=== PATIENT | male | born 1985 | race Caucasian/White ===

== ENCOUNTER 2020-03-03 07:21 | Emergency (ER) | payer SELFPAY ==
[2020-03-03 07:23] VITALS: BP 114/81; PULSE 95; RESP 16; TEMP 36.6; O2SAT 99; BMI 25.8
--- NOTE | 2020-03-03 07:26 | CT_ITS ---
WS: [id number] CT CERVICAL TRAUMA TECHNIQUE: Noncontrast CT of the cervical spine with coronal and sagittal reformatted images. CLINICAL INFORMATION: hanging attempt COMPARISON: None. DLP: 678.[address] scans at [facility] use at least one of these dose optimization techniques: automat ed exposure control; mA and/or kV adjustment per patient size (includes targeted exams where dose is matched to clinical indication); or iterative reconstruction. FINDINGS: Straightening of the normal cervical lordosis. Normal craniocervical junction. Normal C1-C2 articulat ion. Dens is normal in appearance. Normal occipital condyles. No high-grade spinal canal narrowing. N ormal C1 ring. No evidence of acute fracture or dislocation. Osteophytic ridging at C5-C6 with mild c entral canal stenosis. Normal prevertebral soft tissues. Mastoids air cells are well aerated. CT/CT cervical spin wo con* [id number] IMPRESSION: No evidence of acute fracture or dislocation.
--- NOTE | 2020-03-03 07:26 | CT_ITS ---
WS: [id number] CT HEAD TECHNIQUE: Noncontrast CT of the head obtained from the skullbase to the vertex. CLINICAL INFORMATION: seizure COMPARISON: None. DLP: 1190.[address] scans at [facility] use at least one of these dose optimization techniques: automat ed exposure control; mA and/or kV adjustment per patient size (includes targeted exams where dose is matched to clinical indication); or iterative reconstruction. FINDINGS: No evidence of intracranial hemorrhage or mass effect. Ventricular system and basal cisterns are byoce nt. No extra-axial fluid collections. No evidence of mass or mass effect. Normal ramos-white different iation. Paranasal sinuses and mastoid air cells are well aerated. .Normal visualized soft tissues. CT/CT head wo con* [id number] IMPRESSION: 1. No evidence of intracranial hemorrhage or mass effect. 2. No acute intracranial findings.
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
[2020-03-03] MEDS: LORazepam 2 mg Tablet PO (07:33)
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
--- NOTE | 2020-03-03 07:53 | PC.NURSE ---
Pt to CT scan at this time via stretcher. Pt accompanied by [employer] field technician and 1:1 sitter.
--- NOTE | 2020-03-03 08:06 | PC.NURSE ---
Pt returned to room at this time via stretcher by [email or web address]. 1:1 sitter present at this time.
[2020-03-03 08:19] LABS: Basophils % 0.2 %; Eosinophils % 0.3 %; Hematocrit 44.9 % (42.0-52.0); Hemoglobin 14.5 g/dL (11.7-16.6); Lymphocytes % 16.5 %; Mean Corpuscular HGB Conc 32.3 g/dL (30.0-36.0); Mean Corpuscular Hemoglobin 29.5 pg (28.0-34.0); Mean Corpuscular Volume 91.4 fL (80-94); Mean Platelet Volume 12.3 fL (7.4-10.4); Monocytes # 0.4 10^3/uL (0.2-0.9); Monocytes % 3.7 %; Neutrophils # 9.42 10^3/uL (1.8-7.7); Neutrophils % 78.9 %; Nucleated Red Blood Cells % 0 %; Platelet Count 230 10^3/cmm (130-400); Red Blood Count 4.91 10^6/uL (4.1-5.3); Red Cell Distribution Width 12.7 % (12.1-15.1); White Blood Count 11.9 10^3/uL (4.0-10.0)
[2020-03-03 08:41] LABS: Alanine Aminotransferase 31 U/L (0-41); Alkaline Phosphatase 71 IU/L (40-130); Anion Gap 13.7 (5-19); Aspartate Amino Transferase 30 U/L (0-40); Blood Urea Nitrogen 14 mg/dL (6-20); Calcium 10.3 mg/dL (8.5-10.5); Carbon Dioxide 27 mmol/L (22-29); Chloride 104 mmol/L (98-107); Globulin 3.1 g/dL (1.3-4.6); Glomerular Filtration Rate 76.2 mL/min (90-130); Glucose 102 mg/dL (65-115); Osmolality Calculated 288 mOsm/kg (285-295); Potassium 3.7 mmol/L (3.5-5.1); Sodium 141 mmol/L (136-145); Total Bilirubin 0.6 mg/dL (0.15-1.2); Total Protein 8.1 g/dL (6.6-8.7)
[2020-03-03 08:45] LABS: Acetaminophen < 5.0 ug/mL (10-30); Alcohol Level < 10 mg/dL (0-10); Salicylate < 0.3 mg/dL (3-10)
[2020-03-03 08:51] VITALS: BP 100/73; PULSE 91; RESP 20; TEMP 36.9; O2SAT 99
[2020-03-03 08:58] LABS: Amphetamines Screen Urine Positive (Negative); Barbiturates Screen Urine Negative (Negative); Benzodiazepines Screen Urine Negative (Negative); Cocaine Screen Urine Negative (Negative); Opiate Screen Urine Negative (Negative); PCP Screen Urine Negative (Negative); THC Screen Urine Positive (Negative)
[2020-03-03] MEDS: nicotine 21 mg Patch 1 PATCH TRANSDERMA (09:14)
[2020-03-03 10:06] VITALS: BP 120/72; PULSE 72; RESP 20; TEMP 36.9; O2SAT 98
[2020-03-03 10:30] VITALS: BP 120/72; PULSE 72; RESP 20; TEMP 36.9; O2SAT 98
--- NOTE | 2020-03-03 11:02 | PC.NURSE ---
REPORT RECIEVED FROM [facility].
== END 2020-03-03 11:20 | disposition other institution (70) ==
PROVIDERS: Emergency Provider Emergency Medicine
DX: T14.91XA Suicide attempt, initial encounter (principal); X83.8XXA Intentional self-harm by other specified means, initial encounter; F17.210 Nicotine dependence, cigarettes, uncomplicated
CPT/HCPCS: 12345; 36415; 70450; 72125; 80053; 80306; 80307; 85025; 99284; 99285

== ENCOUNTER 2022-03-23 06:49 | Emergency (ER) | payer MEDICAID, SELFPAY ==
[2022-03-23 06:53] VITALS: BP 137/82; PULSE 81; RESP 18; TEMP 36.7; O2SAT 98; BMI 28.8
--- NOTE | 2022-03-23 07:10 | XRR_ITS ---
PROCEDURE INFORMATION: Exam: XR Left Wrist Exam date and time: 03/23/2022 7:13 AM Age: 36 years old Clinical indication: Injury or trauma; Left; Injury details: History--pt lacerated his lt wrist last tues and is still experiencing pain and redness where the stitched lacerations are. Lacerations are anteriorly just above wrist and distal radius/ulna area; Additional info: Injury; Punched glass TECHNIQUE: Imaging protocol: Radiologic exam of the Left wrist. Views: 3 or more views. COMPARISON: No relevant prior studies available. FINDINGS: Bones/joints: No acute bony injury or malalignment in the visualized left wrist. Sclerosis in the navicular. Soft tissues: Soft tissue lacerations without radiopaque foreign body. XR/XR wrist LT min 3V* [id number] IMPRESSION: Soft tissue lacerations without radiopaque foreign body.
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
[2022-03-23 08:31] VITALS: BP 149/91
== END 2022-03-23 08:32 | disposition home or self-care (01) ==
PROVIDERS: Emergency Provider Physician Assistant
DX: S61.512A Laceration without foreign body of left wrist, initial encounter (principal); F17.210 Nicotine dependence, cigarettes, uncomplicated; W25.XXXA Contact with sharp glass, initial encounter
CPT/HCPCS: 73110; 99283

== ENCOUNTER 2022-04-17 14:38 | Inpatient (IN) | payer MEDICAID, SELFPAY ==
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
[2022-04-17 14:55] VITALS: BP 144/95; PULSE 92; RESP 13; O2SAT 99; BMI 27.3
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
[2022-04-17 15:40] LABS: Basophils % 0.2 %; Eosinophils % 0.2 %; Hematocrit 44.9 % (42.0-52.0); Hemoglobin 14.7 g/dL (11.7-16.6); Lymphocytes # 2.2 10^3/uL (0.8-4.8); Lymphocytes % 22.2 %; Mean Corpuscular HGB Conc 32.7 g/dL (30.0-36.0); Mean Corpuscular Hemoglobin 29.3 pg (28.0-34.0); Mean Corpuscular Volume 89.6 fl (80-94); Mean Platelet Volume 12.5 fL (7.4-10.4); Monocytes # 0.7 10^3/uL (0.2-0.9); Monocytes % 6.9 %; Neutrophils # 7.03 10^3/uL (1.8-7.7); Nucleated Red Blood Cells % 0 %; Platelet Count 203 10^3/cmm (130-400); Red Blood Count 5.01 10^6/uL (4.1-5.3); Red Cell Distribution Width 13.1 % (12.1-15.1)
[2022-04-17 15:50] LABS: Alanine Aminotransferase 49 U/L (0-41); Albumin Level 4.6 g/dL (3.5-5.2); Alkaline Phosphatase 81 U/L (40-130); Anion Gap 13.3 (5-19); Aspartate Amino Transferase 43 U/L (0-40); Blood Urea Nitrogen 19 mg/dL (6-20); Calcium 9.5 mg/dL (8.5-10.5); Carbon Dioxide 27 mmol/L (22-29); Chloride 103 mmol/L (98-107); Globulin 2.6 g/dL (1.3-4.6); Glomerular Filtration Rate 83.6 mL/min (90-130); Glucose 90 mg/dL (65-115); Osmolality Calculated 290 mOsm/kg (285-295); Potassium 4.3 mmol/L (3.5-5.1); Sodium 139 mmol/L (136-145); Thyroid Stimulating Hormone 1.18 uIU/mL (0.27-4.20); Total Bilirubin 0.6 mg/dL (0.15-1.2); Total Protein 7.2 g/dL (6.6-8.7)
[2022-04-17 16:05] LABS: Acetaminophen < 5.0 ug/mL (10-30); Alcohol Level < 10 mg/dL (0-10); Salicylate < 0.3 mg/dL (3-10)
--- NOTE | 2022-04-17 16:23 | PC.NURSE ---
attempted to call report to NPU, unavailable to take reports at this time
--- NOTE | 2022-04-17 16:54 | PC.NURSE ---
attempted to call report to NPU, unavailable for report at this time.
[2022-04-17 17:54] VITALS: BP 137/92; PULSE 76; RESP 16; O2SAT 95
[2022-04-17 21:00] VITALS: BP 119/76; PULSE 87; RESP 16; O2SAT 96
[2022-04-18 06:00] VITALS: BP 108/68; PULSE 97; RESP 17; TEMP 36.9; O2SAT 96
[2022-04-18 07:01] LABS: Amphetamines Screen Urine Positive (Negative); Barbiturates Screen Urine Negative (Negative); Benzodiazepines Screen Urine Negative (Negative); Cocaine Screen Urine Negative (Negative); Opiate Screen Urine Negative (Negative); PCP Screen Urine Negative (Negative); THC Screen Urine Negative (Negative)
[2022-04-18 07:10] LABS: Urine Appearance SL Hazy (CLEAR); Urine Color Dark Yellow (Yellow)
[2022-04-18 07:11] LABS: Add Urine Culture? Yes; Add Urine Microscopic? YES; Bacteria Urine 1+ /hpf; Bilirubin Urine Neg (Negative); Blood Urine Neg (Negative); Glucose Urine UA Norm (Normal); Ketones Urine Negative (Negative); Leukocyte Esterase Urine 2+ (Negative); Mucus Urine TRACE /hpf; Nitrate Urine Negative (Negative); Protein Urine Neg (Negative); Urobilinogen Urine Norm (Negative); WBC Urine 15-25 /hpf (0-5); pH Urine 6 (5-7)
[2022-04-18 14:00] VITALS: BP 104/59; PULSE 68; RESP 18; TEMP 36.6; O2SAT 98
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
[2022-04-18] MEDS: quetiapine 25 mg Tablet 50 MG PO (20:05)
[2022-04-18 20:43] VITALS: BP 99/61; PULSE 69; RESP 18; TEMP 36.6; O2SAT 98
--- NOTE | 2022-04-19 01:50 | PC.NURSE ---
Addendum entered by Carli Curtis LPN 04/19/22 03:18: Incident report filed # [id number] Original Note: while at the nurses desk we heard the patient slam his door shut, I went to his room and opened it to be in compliance to be able to see him when doing nursing rounds- when i opened the door the patient growled, i told him i was sorry but we had to keep the door open at least alittle bit. upon getting back into the nurses desk the patient then slammed the door forceful enough to swing out in the hallway. CARA Cope and I went to the patient room- Cara Cope informed patient that the door must stay open patient complained about light in his eyes. Cara Cope explained to patient that he had broken the door to his room an that was not acceptable behavior. patient put pillow over his head mumbling.
[2022-04-19 06:00] VITALS: RESP 18
--- NOTE | 2022-04-19 06:31 | PC.NURSE ---
after knocking I entered patients room calling his name explained I was here to take morning vital signs. patient did not respond so I called his name again patient respirations were even and non labored patient moved in the bed I again explained why I was in his room patient curled up in a tight ball growled, shaking his head no. I then left the room leaving a small opening between the door and the door frame so that during the 15 minute rounds we are able to lay eyes on the patient.
[2022-04-19 14:00] VITALS: BP 101/63; PULSE 74; RESP 18; TEMP 36.9; O2SAT 96
--- NOTE | 2022-04-19 17:35 | W.PM.NPUPNS ---
Subjective NPU Subjective: Patient is a 37-year-old white male with a history of borderline personality traits and suicidal ideation ideation admitted with depressed mood. The patient had reported an extended history of depression and reported that he has had an extended history of chronic feelings of abandonment. He reports that he has had difficulties with managing his depression and reports some feelings of hopelessness. He reports that he does wish to reconcile with his girlfriend and states that he has historically been unable to engage in therapy to manage his addiction and his mood instability. He had reported some difficulties with sleep continuity disruption but reports some improvement on Seroquel 50 mg last night. Mental Status Exam MSE Comments: He is a casually dressed white male who appeared friendly and cooperative on interview. He did appear his stated age. There was no evidence of any abnormal involuntary motor movements tics or tremors appreciated. His mood was described as down His affect was mood congruent and restricted in range. His thought process was linear logical and goal-directed. He had reported having angry thoughts and minimized suicidal thoughts with no active plan currently. He denied any homicidal ideation at this time. There is no clear evidence of delusional thinking. He did not appear to be responding to internal stimuli. His attention was variable as he appeared easily distracted throughout much of the interview. His insight was limited. His judgment was poor. His impulse control was impaired. Vitals/I&O/Wt Last Vital Signs Temp 98.4 F 04/19/22 14:00 Pulse 74 04/19/22 14:00 Resp 18 04/19/22 14:00 BP 101/63 04/19/22 14:00 Pulse Ox 96 04/19/22 14:00 O2 Del Method 04/18/22 20:43 Data NPU : 04/17/22 15:08 04/17/22 15:08 Micro: Microbiology 04/18/22 06:05 Urine Culture - Preliminary Urine,Clean Catch Microbiology 04/18/22 06:05 Urine,Clean Catch Urine Culture - Preliminary A&P Assessment and plan (1) Suicidal ideation: Status: Acute (2) Borderline personality disorder: Status: Acute (3) Bipolar disorder, unspecified: Status: Acute (4) Depressed mood: Status: Acute Plan Patient is a 37year old white male with hx of bipolar symptoms along with active methamphetamine and thc use currently endorsing depressed mood and suicidal ideation. 1. Continue current medications 2. Encourage individual, group and milieu therapy 3. Continue q-15 minute check for safety 4. Recommend sober living treatment at the highest level of care to which the patient is willing to commit. 5. Increase Seroquel to 100mg at night to target mood instability and continue wellbutrin xl 150mg in am. Involuntary Hold Information 96 Hour Hold: 96 Hour Involuntary Admission: Yes 96 Hour Hold Ending Date: 04/21/22 96 Hour Hold Ending Time: 17:55 Attestations NPU Medical Necessity Statement*: Inpatient hospitalization is medically necessary and the clinically appropriate intervention at this time. We will monitor medications and make changes as indicated. Patient will be in the hospital for over two midnights. Likely length of stay is three to five days. 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
[2022-04-19] MEDS: quetiapine 100 mg Tablet PO (21:13)
[2022-04-19 21:54] VITALS: RESP 17
[2022-04-19] MEDS: nicotine 4 mg lozenge MUCOUS MEM (22:41)
[2022-04-20 06:00] VITALS: BP 132/97; PULSE 78; RESP 15; TEMP 37; O2SAT 97
--- NOTE | 2022-04-20 08:39 | PC.NURSE ---
shift assessment, denies all, hostile, has to be woken up, stated he's been hungry for hours now! assured that breakfast would be here shortly....limited assessment done, pt would not roll over to let nurse listen to lung sounds, does not appear to be in any distress, resp even et unlabored
[2022-04-20] MEDS: buPROPion XL (24 HR) 150 mg Tablet PO (09:10)
[2022-04-20 14:00] VITALS: BP 122/82; PULSE 73; RESP 18; TEMP 36.8; O2SAT 96
[2022-04-20] MEDS: nicotine 21 mg Patch 1 PATCH TRANSDERMA (14:28)
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
[2022-04-20] MEDS: risperiDONE 0.25 mg Tablet 0.5 MG PO (17:56)
[2022-04-20 21:10] VITALS: BP 154/90; PULSE 85; RESP 16; TEMP 36.9; O2SAT 99
[2022-04-21 06:00] VITALS: RESP 17
[2022-04-21] MEDS: buPROPion XL (24 HR) 150 mg Tablet PO (10:46)
[2022-04-21] MEDS: risperiDONE 0.25 mg Tablet 0.5 MG PO (10:46)
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
[2022-04-21 13:04] VITALS: BP 130/70; PULSE 78; RESP 17; TEMP 37.1; O2SAT 98
== END 2022-04-21 14:55 | disposition home or self-care (01) | DRG 885 ==
LOC: ER 15:01 → NP 17:27
PROVIDERS: Admitting Provider Psychiatry & Neurology Psychiatry; Emergency Provider Emergency Medicine; Visit Provider Psychiatry & Neurology Psychiatry
DX: F31.9 Bipolar disorder, unspecified (principal); R45.851 Suicidal ideations; F60.3 Borderline personality disorder; F17.210 Nicotine dependence, cigarettes, uncomplicated; F81.9 Developmental disorder of scholastic skills, unspecified; F15.90 Other stimulant use, unspecified, uncomplicated; F12.90 Cannabis use, unspecified, uncomplicated; R45.89 Other symptoms and signs involving emotional state; I10 Essential (primary) hypertension; Z62.810 Personal history of physical and sexual abuse in childhood; Z81.3 Family history of other psychoactive substance abuse and dependence; Z91.51 Personal history of suicidal behavior; Z63.0 Problems in relationship with spouse or partner
CPT/HCPCS: 80053; 80306; 80307; 81001; 84443; 85025; 87086; 97165; 99285